=== PATIENT | male | born 1995 | race African-American/Black ===

== ENCOUNTER 2020-09-11 14:11 | Emergency (ER) | payer SELFPAY ==
--- NOTE | ~2020-09-11 | XR_ITS ---
EXAMINATION: XR wrist RT min 3V DATE: 09/11/2020 14:34 INDICATION: Right wrist pain. TECHNIQUE: 4 views of right wrist were obtained. COMPARISON: None. FINDINGS: Scaphoid is very small. Scapholunate dissociation is noted. There is proximal migration of the capitate, which articulates with the distal radius. No significant arthritis is identified. IMPRESSION: 1. 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 Reviewed, dictated and finalized at location A. IMPRESSION: 1. 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
[2020-09-11 14:23] VITALS: BP 126/65; PULSE 86; RESP 16; TEMP 36.8; O2SAT 100
--- NOTE | 2020-09-11 14:23 | ED.GENADULT ---
HPI - General Adult General Chief complaint: Extremity Injury, Upper Stated complaint: rt hand pain Time Seen by Provider: 09/11/20 14:23 Source: patient Mode of arrival: ambulatory Limitations: no limitations History of Present Illness HPI narrative: 25-year-old male patient presents to the [facility] with complaints of right hand pain. Patient is right-hand dominant. Patient states that he fractured his right hand about 3 years ago and had to get surgery. Patient unaware if they had put hardware or not in his hand but thinks he might have some screws in the ear. Patient does not remember where he got surgery. Patient states that the last couple days his wrist has been popping is been causing more pain especially when he goes to [employer] his daughter but denies any pain at this time. Patient states when the pain does occur he rates it a 7 out of 10 but denies taking anything for pain since the pain has started again. Patient states that since his surgery he has had limited range of motion on extension of the wrist. Related Data Home Medications Medication Instructions Recorded Confirmed No Home Medications 09/11/20 09/11/20 Allergies Allergy/AdvReac Type Severity Reaction Status Date / Time No Known Allergies Allergy Verified 09/11/20 14:21 Review of Systems Review of Systems: Narrative: CONSTITUTIONAL: Denies fever, chills, or sweats. EYES: Denies visual changes, redness, or discharge. ENT: Denies rhinorrhea, congestion, sore throat, or otalgia. CARDIOVASCULAR: Denies chest pain, palpitations, or edema. RESPIRATORY: Denies cough or dyspnea. GASTROINTESTINAL: Denies abdominal pain, nausea, vomiting, or diarrhea. GENITOURINARY: Denies dysuria or hematuria. SKIN: Denies rash or itching. MUSCULOSKELETAL: Denies back pain, joint pain, or myalgia. Positive right hand and wrist pain NEUROLOGIC: Denies headache, numbness, or weakness. PSYCHIATRIC: Denies anxiety or depression. PMFSH Surgical History Surgical History (Updated 09/11/20 @ 14:24 by SERA Shelby) History of orthopedic surgery Right hand Comments At the time of my signature I agree with nursing past medical history, surgical, social, and family history. There is no relevant family history pertinent to the presenting complaint. Exam Narrative: Exam Narrative: GENERAL: Well-appearing, well-nourished, and in no acute distress. HEAD: Normocephalic, atraumatic. EYES: PERRLA and EOMI. ENT: Nares clear, no rhinorrhea or epistaxis. Mucous membranes moist. NECK: Supple. No lymphadenopathy CHEST: Clear to auscultation. No respiratory distress. HEART: Regular rate and rhythm. No murmur heard. Normal peripheral pulses. ABDOMEN: Soft, nontender, nondistended, normal active bowel sounds. EXTREMITIES: The R wrist is without obvious asymmetry or deformity when compared to the L wrist. No surface trauma, open wounds, swelling, or obvious deformity. No overlying erythema or warmth. No bony crepitus or focal area of TTP. No scaphoid fullness or tenderness to direct palpation or axial load. Normal flex/decrease in extension of right wrist, normal ulnar/radial deviation. Motor/sensory function of ulnar, radial, median nerves intact. Ulnar and radial pulses intact. Negaitve Phalen's/Tinel's sign. Negative Allen test.. SKIN: Warm, dry, no rash. NEURO: No focal deficits. Alert and oriented x3. Course Reevaluation(s) Reevaluation #1: Reevaluated patient after x-ray had resulted. Discussed with him that the x-ray shows that he most likely has some chronic issues with his wrist from his previous fracture. Discussed with him that sometimes these chronic issues can lead to chronic arthritis and sometimes it can lead to further decreased range of motion of the ligaments of the wrist. Discussed with patient that since his pain is not severe I recommend that he take Tylenol and we are going to wrap his wrist with an Kaleb wrap today but I highly recommend that he gets some
== END 2020-09-11 15:07 | disposition home or self-care (01) ==
PROVIDERS: Emergency Provider Nurse Practitioner Family
DX: G89.29 Other chronic pain (principal); M25.531 Pain in right wrist; S63.511A Sprain of carpal joint of right wrist, initial encounter; X58.XXXA Exposure to other specified factors, initial encounter
CPT/HCPCS: 73110; 99213; G0463